=== PATIENT | male | born 1980 | race Hispanic/Latino ===

== ENCOUNTER 2019-04-03 13:56 | Emergency (ER) | payer OTHER ==
[2019-04-03] MEDS ORDERED: predniSONE 20 MG TAB ONE (14:10)
[2019-04-03] MEDS ORDERED: EPINEPHrine 1 MG/ML AMP ONE (14:14)
== END 2019-04-03 15:35 | disposition home or self-care (01) ==
LOC: SCSER 13:56
DX: T78.40XA Allergy, unspecified, initial encounter (principal); F17.210 Nicotine dependence, cigarettes, uncomplicated; Z79.899 Other long term (current) drug therapy
CPT/HCPCS: 96372; 99282; J0171; J7512

== ENCOUNTER 2019-04-19 18:10 | Emergency (ER) | payer OTHER ==
[2019-04-19] MEDS ORDERED: Lidocaine 1% PF 5 ML VIAL ONE ×2 (18:29→18:55)
--- NOTE | 2019-04-19 18:42 | RAD ---
EXAM: Left index finger: 3 views INDICATIONS: Injury COMPARISON: None. FINDINGS: No fracture or dislocation. No osseous abnormality. IMPRESSION: No acute finding
[2019-04-19] MEDS ORDERED: Adacel (T-DAP) 0.5 ML SYRINGE ONE (19:15)
[2019-04-19] MEDS ORDERED: Bacitracin 1 PK ONE (19:15)
== END 2019-04-19 19:34 | disposition home or self-care (01) ==
LOC: SCSER 18:10
DX: S61.211A Laceration without foreign body of left index finger without damage to nail, initial encounter (principal); F17.210 Nicotine dependence, cigarettes, uncomplicated; Z23 Encounter for immunization; W22.8XXA Striking against or struck by other objects, initial encounter; Y99.0 Civilian activity done for income or pay
CPT/HCPCS: 12001; 90471; 90715; J2001